=== PATIENT | male | born 1955 | race Caucasian/White ===

== ENCOUNTER → 2017-01-28 | Outpatient (CLI) | payer OTHER ==
[~2017-01-28] MED LIST: ACCUPRIL PO; ADULT LOW DOSE81 MG PO; FISH OIL 1,0001 EAC5 PO; HYDROCODON-ACE1 EAC7 PO; IBUPROFEN 200200 M1 PO; LIPITOR80 MG PO; Metformin Hcl PO; NORCO 5-325 TA1 EACH PO; NORFLEX100 MG PO; Pantoprazole Sodium 40 Mg Tablet PO; QUINU10 PD PO; TOPROL XL50 MG PO; VITAMIN D1000 UNI1 PO; ZEGERID 20 MG1 EACH PO; ZETIA10 MG PO
[2017-01-28 11:23] LABS: ABSOLUTE NEUTROPHILS 5.7 thou/uL (1.4-8.2); BASOPHILS 1.4 % (0.0-2.0); EOSINOPHILS 1.4 % (0.0-3.0); HEMATOCRIT 41.8 % (42.0-52.0); LYMPHOCYTES 20.8 % (24.0-44.0); MANUAL DIFF NO; MCH 28.8 pg (26.0-34.0); MCHC 33.5 g/dL (28.0-37.0); MCV 86.1 fL (80.0-100.0); MONOCYTES 8.6 % (1.0-8.0); PLATELET COUNT 261 thou/uL (150-400); POLYS 67.8 % (36.0-66.0); RBC 4.85 mil/uL (4.50-6.00); RDW 14.7 % (10.5-14.5); WBC 8.4 thou/uL (4.0-11.0)
[2017-01-28 11:36] LABS: ALBUMIN 4.5 g/dL (3.4-5.0); ALKALINE PHOSPHATASE 57 U/L (46-116); ANION GAP 11 mmol/L (7-16); BUN 16 mg/dL (7-18); CALCIUM 9.7 mg/dL (8.5-10.1); CHLORIDE 103 mmol/L (98-107); CHOLESTEROL 114 mg/dL (<200); CO2 27 mmol/L (21-32); CREATININE 0.8 mg/dL (0.7-1.3); GLUCOSE 78 mg/dL (74-106); HDL CHOLESTEROL 59 mg/dL (>40); LDL CHOLESTEROL 47 mg/dL (<100); POTASSIUM 4.6 mmol/L (3.5-5.1); SGOT 19 U/L (15-37); SGPT 31 U/L (30-65); SODIUM 141 mmol/L (136-145); TC:HDL 1.9 Ratio (Not establshd); TOTAL BILIRUBIN 0.9 mg/dL (<0.1-1.0); TOTAL PROTEIN 7.4 g/dL (6.4-8.2); TRIGLYCERIDE 43 mg/dL (<150); VLDL 9 mg/dL (<40)
[2017-01-29 05:09] LABS: GLYCOHEMOGLOBIN (HGB A1C) 5.2 % (4.8-5.6)
== END ==
LOC: LABMALL 11:02
PROVIDERS: Neuromusculoskeletal Medicine & OMM
DX: E11.9 Type 2 diabetes mellitus without complications (principal)

== ENCOUNTER → 2017-05-03 | Outpatient (CLI) | payer OTHER ==
[2017-05-03 07:54] LABS: ANION GAP 10 mmol/L (7-16); BUN 13 mg/dL (7-18); CALCIUM 9.6 mg/dL (8.5-10.1); CHLORIDE 103 mmol/L (98-107); CO2 25 mmol/L (21-32); CREATININE 0.7 mg/dL (0.7-1.3); GLUCOSE 143 mg/dL (74-106); POTASSIUM 4.1 mmol/L (3.5-5.1); SODIUM 138 mmol/L (136-145)
[2017-05-03 08:00] LABS: ALBUMIN 4.3 g/dL (3.4-5.0); ALKALINE PHOSPHATASE 59 U/L (46-116); CHOLESTEROL 122 mg/dL (<200); HDL CHOLESTEROL 66 mg/dL (>40); LDL CHOLESTEROL 47 mg/dL (<100); SGOT 14 U/L (15-37); SGPT 28 U/L (30-65); TC:HDL 1.8 Ratio (Not establshd); TOTAL BILIRUBIN 0.8 mg/dL (<0.1-1.0); TOTAL PROTEIN 7.2 g/dL (6.4-8.2); TRIGLYCERIDE 49 mg/dL (<150); VLDL 10 mg/dL (<40)
== END ==
LOC: LABMALL 07:09
PROVIDERS: Neuromusculoskeletal Medicine & OMM
DX: E11.65 Type 2 diabetes mellitus with hyperglycemia (principal); E78.2 Mixed hyperlipidemia; Z79.899 Other long term (current) drug therapy

== ENCOUNTER 2018-02-01 12:42 | Emergency (ER) | payer OTHER ==
[~2018-02-01] VITALS: Ht 177.8 cm; Wt 102.1 kg
[~2018-02-01 12:42] MED LIST changes: +CRESTOR20 MG PO; +PERCOCET PO
== END 2018-02-01 14:23 | disposition home or self-care (01) ==
LOC: ER 12:42
DX: S61.213A Laceration without foreign body of left middle finger without damage to nail, initial encounter (principal); I21.9 Acute myocardial infarction, unspecified; E78.5 Hyperlipidemia, unspecified; K21.9 Gastro-esophageal reflux disease without esophagitis; E11.9 Type 2 diabetes mellitus without complications; I10 Essential (primary) hypertension; Z96.652 Presence of left artificial knee joint; Z95.5 Presence of coronary angioplasty implant and graft; Z87.891 Personal history of nicotine dependence; X58.XXXA Exposure to other specified factors, initial encounter; Y93.89 Activity, other specified; Y92.89 Other specified places as the place of occurrence of the external cause; Y99.8 Other external cause status

== ENCOUNTER → 2020-02-22 | Outpatient (CLI) | payer OTHER | LOC: LABMALL 07:36 | DX: E78.2 Mixed hyperlipidemia (principal); E11.9 Type 2 diabetes mellitus without complications; I10 Essential (primary) hypertension; Z79.899 Other long term (current) drug therapy ==

== ENCOUNTER → 2020-05-23 | Outpatient (CLI) | payer OTHER ==
[2020-05-24 04:06] LABS: GLYCOHEMOGLOBIN (HGB A1C) 6.6 % (4.8-5.6)
== END ==
LOC: LABMALL 06:30
PROVIDERS: ATTEND Neuromusculoskeletal Medicine & OMM
DX: E11.9 Type 2 diabetes mellitus without complications (principal)

== ENCOUNTER → 2020-09-23 | Day surgery (SDC) | payer OTHER ==
[2020-09-24 03:06] LABS: GLYCOHEMOGLOBIN (HGB A1C) 6.5 % (4.8-5.6)
== END | disposition home or self-care (01) ==
LOC: LAB 14:31
PROVIDERS: ATTEND Neuromusculoskeletal Medicine & OMM
DX: E11.9 Type 2 diabetes mellitus without complications (principal)

== ENCOUNTER → 2021-01-07 | Outpatient (CLI) | payer OTHER ==
[2021-01-07 09:22] LABS: ABSOLUTE NEUTROPHILS 5.2 thou/uL (1.4-8.2); BASOPHILS 1.2 % (0.0-2.0); EOSINOPHILS 1.1 % (0.0-3.0); HEMATOCRIT 45.5 % (42.0-52.0); MCH 30.1 pg (26.0-34.0); MCHC 32.9 g/dL (28.0-37.0); MCV 91.4 fL (80.0-100.0); MONOCYTES 9.4 % (1.0-8.0); PLATELET COUNT 237 thou/uL (150-400); POLYS 66.3 % (36.0-66.0); RBC 4.98 mil/uL (4.50-6.00); RDW 14.1 % (10.5-14.5); WBC 7.8 thou/uL (4.0-11.0)
[2021-01-07 09:35] LABS: ANION GAP 10 mmol/L (7-16); BUN 19 mg/dL (7-18); CHLORIDE 102 mmol/L (98-107); CHOLESTEROL 135 mg/dL (<200); CO2 28 mmol/L (21-32); GLUCOSE 138 mg/dL (74-106); HDL CHOLESTEROL 68 mg/dL (>40); LDL CHOLESTEROL 58 mg/dL (<100); POTASSIUM 4.1 mmol/L (3.5-5.1); SGOT 26 U/L (15-37); SGPT 50 U/L (30-65); SODIUM 140 mmol/L (136-145); TOTAL BILIRUBIN 0.8 mg/dL (0.2-1.0); TOTAL PROTEIN 7.3 g/dL (6.4-8.2); TRIGLYCERIDE 46 mg/dL (<150); VLDL 9 mg/dL (<40)
[2021-01-07 23:22] LABS: GLYCOHEMOGLOBIN (HGB A1C) 6.4 % (4.8-5.6)
== END ==
LOC: LAB 07:22
PROVIDERS: ATTEND Neuromusculoskeletal Medicine & OMM
DX: E11.9 Type 2 diabetes mellitus without complications (principal); E78.2 Mixed hyperlipidemia; Z79.899 Other long term (current) drug therapy

== ENCOUNTER → 2021-02-28 | Outpatient (CLI) | payer OTHER | LOC: SJCVCIMAG 08:28 | PROVIDERS: ATTEND Internal Medicine Cardiovascular Disease | DX: I65.23 Occlusion and stenosis of bilateral carotid arteries (principal); I10 Essential (primary) hypertension; E78.5 Hyperlipidemia, unspecified ==

== ENCOUNTER → 2021-03-14 | Outpatient (CLI) | payer OTHER | LOC: SJCVCIMAG 09:03 | PROVIDERS: ATTEND Internal Medicine Cardiovascular Disease | DX: I49.1 Atrial premature depolarization (principal); I49.3 Ventricular premature depolarization; R53.83 Other fatigue; R06.00 Dyspnea, unspecified; I25.5 Ischemic cardiomyopathy; I25.10 Atherosclerotic heart disease of native coronary artery without angina pectoris; I25.2 Old myocardial infarction; I10 Essential (primary) hypertension; E78.5 Hyperlipidemia, unspecified; Z98.61 Coronary angioplasty status ==

== ENCOUNTER → 2021-04-10 | Outpatient (CLI) | payer OTHER ==
[2021-04-10 09:18] LABS: ABSOLUTE NEUTROPHILS 5.4 thou/uL (1.4-8.2); BASOPHILS 1.3 % (0.0-2.0); EOSINOPHILS 1.6 % (0.0-3.0); HEMATOCRIT 43.5 % (42.0-52.0); HEMOGLOBIN 14.5 gm/dL (14.0-18.0); LYMPHOCYTES 22.1 % (24.0-44.0); MCH 30.3 pg (26.0-34.0); MCHC 33.3 g/dL (28.0-37.0); MCV 90.9 fL (80.0-100.0); MONOCYTES 8.6 % (1.0-8.0); PLATELET COUNT 246 thou/uL (150-400); POLYS 66.4 % (36.0-66.0); RBC 4.79 mil/uL (4.50-6.00); WBC 8.1 thou/uL (4.0-11.0)
[2021-04-11 03:06] LABS: GLYCOHEMOGLOBIN (HGB A1C) 6.6 % (4.8-5.6)
== END ==
LOC: LAB 08:04
PROVIDERS: ATTEND Neuromusculoskeletal Medicine & OMM
DX: E11.9 Type 2 diabetes mellitus without complications (principal)

== ENCOUNTER → 2021-06-16 | Outpatient (CLI) | payer OTHER ==
[2021-06-17 00:06] LABS: GLYCOHEMOGLOBIN (HGB A1C) 6.6 % (4.8-5.6)
== END ==
LOC: LAB 08:03
PROVIDERS: ATTEND Neuromusculoskeletal Medicine & OMM
DX: E11.9 Type 2 diabetes mellitus without complications (principal)